=== PATIENT | male | born 1950 | race Caucasian/White ===

== ENCOUNTER 2021-08-31 19:34 | Inpatient (IN) | payer MEDICARE, OTHER ==
[~2021-08-31] VITALS: Ht 170.2 cm; Wt 79.4 kg
--- NOTE | 2021-08-31 19:50 | NUR ---
[id number] FROM SNF, C/O "BEING MORE LETHARGIC" PER STAFF. 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 PATIENT ALERT AND ORIENTED X1. PATIENT BROUGHT IN BY STRETCHER AND PLACED IN BED 02 ON NC 4L.
[2021-08-31] MEDS ORDERED: PIPERACILLIN /TAZOBACTAM 3.375 G in IV D5W 50 ML IV ONE (20:00)
[2021-08-31] MEDS ORDERED: IV NS 0.9% 1,000 ML BAG IV ONE (20:00)
[2021-08-31] MEDS ORDERED: VANCOMYCIN 1 GM in IV D5W 250 ML IV ONE (20:00)
[2021-08-31] MEDS ORDERED: LIDOCAINE 2% JEL UROJET 10 ML MM ONE (20:27)
[2021-08-31] MEDS ORDERED: PIPERACILLIN /TAZOBACTAM 3.375 G VIAL IV ONE (21:04)
[2021-08-31] MEDS ORDERED: ACETAMINOPHEN ES 500 MG TABLET PO ONE (22:00)
[2021-08-31 22:01] LABS: BILIRUBIN,URINE NEGATIVE (NEGATIVE); COLOR,URINE YELLOW (YELLOW); LEUKOCYTE ESTERASE ,URINE NEGATIVE (NEGATIVE); NITRITE, URINE NEGATIVE (NEGATIVE); PROTEIN,URINE NEGATIVE (NEGATIVE); UGLUCOSE NEGATIVE (NEGATIVE)
[2021-08-31 22:09] LABS: BACTERIA,URINE RARE /HPF (None Seen); MUCUS,URINE Few /LPF (None Seen); SQUAMOUS EPITHELIAL CELL,UR 0-2 /HPF (None Seen); WBC,URINE 0-2 /HPF (0-3)
[2021-08-31] MEDS ORDERED: OLANZAPINE 10 MG VIAL IM ONE ×2 (23:11→23:30)
[2021-08-31] MEDS ORDERED: ACETAMINOPHEN ES 500 MG TABLET ONE (23:14)
[2021-08-31 23:19] LABS: BASOPHILS % (AUTO) 0.2 % (0.0-2.0); EOSINOPHILS % (AUTO) 0.6 % (0.0-6.0); HEMATOCRIT 39 % (39-51); HEMOGLOBIN 12.9 g/dL (13.5-17.5); LYMPHOCYTES # (AUTO) 1.3 K/uL (0.8-4.8); LYMPHOCYTES % (AUTO) 15.9 % (20.0-44.0); MEAN CORPUSCULAR HGB CONC 33 g/dl (31.0-36.0); MEAN CORPUSCULAR VOLUME 94 fL (80-96); MONOCYTES % (AUTO) 12.4 % (2.0-12.0); NEUTROPHILS # (AUTO) 5.8 K/uL (1.8-8.9); NEUTROPHILS % (AUTO) 70.9 % (43.0-81.0); PLATELET COUNT (AUTO) 108 K/uL (150-450); RED BLOOD CELL COUNT(AUTO) 4.14 MIL/uL (4.5-6.0); WHITE BLOOD COUNT (AUTO) 8.2 K/uL (4.3-11.0)
[2021-08-31] MEDS ORDERED: VANCOMYCIN 1 GM VIAL ONE (23:36)
[2021-08-31 23:40] LABS: CALCIUM, SERUM 8.3 mg/dL (8.5-10.1); CARBON DIOXIDE 30 mmol/L (21-32); CHLORIDE 106 mmol/L (98-107); CREATININE 0.6 mg/dL (0.6-1.3); GLUCOSE 126 mg/dL (74-106); SODIUM SERUM 142 mmol/L (136-145); UREA NITROGEN, BLOOD 12 mg/dL (7-18)
[2021-08-31 23:53] LABS: ALANINE AMINOTRANSFERASE 18 U/L (12-78); ALBUMIN 2.4 g/dL (3.4-5.0); ALKALINE PHOSPHATASE 67 U/L (46-116); ASPARTATE AMINOTRANSFERASE 16 U/L (15-37); BILIRUBIN,DIRECT 0.1 mg/dL (0.0-0.2); BILIRUBIN,TOTAL 0.2 mg/dL (0.2-1.0)
[2021-09-01] VITALS (7 sets, daily range): BP systolic 123–159; BP diastolic 63–80
--- NOTE | 2021-09-01 00:58 | NUR ---
CALLED [facility], EQUIPMENT W[facility]ER DR DESAI
[2021-09-01] MEDS ORDERED: Z GUARD REMEDY 2 OZ OINT TP PRN (01:30)
[2021-09-01] MEDS ORDERED: MAGNESIUM HYDROXIDE 30 ML UDC PO PRN (01:30)
[2021-09-01] MEDS ORDERED: MAG HYDROX/AL HYDROX/SIMETH 30 ML UDC PO PRN (01:30)
[2021-09-01] MEDS ORDERED: ACETAMINOPHEN 325 MG TABLET PO PRN (01:30)
[2021-09-01] MEDS ORDERED: ZOLPIDEM TARTRATE 5 MG TABLET PO PRN (01:30)
[2021-09-01] MEDS ORDERED: ONDANSETRON HCL/PF 4 MG/2 ML VIAL IVP PRN (01:30)
--- NOTE | 2021-09-01 02:50 | NUR ---
CALLED FOR REPORT RN WILL Call BACK
--- NOTE | 2021-09-01 03:02 | NUR ---
RN NOTES RECEIVED ER ADMISSION REPORT FROM [facility]IR[facility] MORAN. ALL PERTINENT ADMISSION INFO REGARDING PT NOTED. WILL WAIT FOR PT TO BE TRANSFERRED TO UNIT AND ADDRESS NEEDS ACCORDINGLY. ACADEMIC SERVICES COORDINATOR MADE AWARE.
--- NOTE | 2021-09-01 03:06 | NUR ---
REPORT GIVEN [facility]
--- NOTE | 2021-09-01 03:15 | NUR ---
RN NOTES RECEIVED PT FROM ER VIA BHANU ACCOMPANIED BY 2 ER STAFF AND TRANSFERRED TO BED VIA 2 PERSON ASSIST. PT IS A/OX1-2; ON 4L OF 02 VIA NC; WITH RESPIRATIONS EVEN AND UNLABORED. COMPREHENSIVE PHYSICAL ASSESSMENT AND PATIENT CARE DONE. CALL LIGHT WITHIN REACH, SAFETY MEASURES AND ISOLATION PRECAUTION IN PLACE, WILL CONTINUE MONITOR AND ASSESS THROUGHOUT THE SHIFT. WILL CARRY OUT MD ORDERS ACCORDINGLY. MILLING MACHINE TENDER MADE AWARE.
[2021-09-01] MEDS ORDERED: TERA2CAP4 PO (03:17)
[2021-09-01] MEDS ORDERED: TRAZ-182 PO (03:17)
[2021-09-01] MEDS ORDERED: BENA20TA9 PO (03:17)
[2021-09-01] MEDS ORDERED: OLAN5TAB3 PO (03:17)
[2021-09-01] MEDS ORDERED: SENN-261 PO (03:17)
[2021-09-01] MEDS ORDERED: ACET325C7 PO (03:17)
[2021-09-01] MEDS ORDERED: ASCO60LO9 PO (03:17)
[2021-09-01] MEDS ORDERED: AMLO-212 PO (03:17)
[2021-09-01] MEDS ORDERED: MULT-754 PO (03:17)
[2021-09-01] MEDS ORDERED: ATOR10TA PO (03:17)
[2021-09-01] MEDS ORDERED: ZINC1POW MC (03:17)
--- NOTE | 2021-09-01 03:26 | NUR ---
PT TRANSPORTED TO ROOM 110 ON COLD STRIP ROLLER PER ACLS PROTOCOL WITHOUT ICNIDENT.
[2021-09-01] MEDS ORDERED: AMLODIPINE BESYLATE 5 MG TABLET PO SCH (03:30)
[2021-09-01] MEDS: IV NS 0.9% 1,000 ML IV PRN ×2 (03:30→20:43)
[2021-09-01] MEDS ORDERED: BENAZEPRIL HCL 20 MG TABLET PO SCH (03:30)
[2021-09-01] MEDS ORDERED: PIPERACILLIN /TAZOBACTAM 3.375 G VIAL IV ONE (04:19)
[2021-09-01] MEDS ORDERED: PIPERACILLIN /TAZOBACTAM 3.375 G in IV D5W 50 ML IV SCH ×2 (05:00→12:00)
--- NOTE | 2021-09-01 06:44 | NUR ---
RN CLOSING NOTE: PATIENT REMAINS IN ROOM IN NO SIGNS OF RESPIRATORY DISTRESS, PATIENT STILL ON 4L OF 02 VIA NC ;TOLERATING WELL SATURATING @ >95% SP02. SAFETY MEASURES IMPLEMENTED, BED IN LOWEST POSITION, LOCKED, SIDE RAILS UP, CALL LIGHT WITHIN REACH. ALL NEEDS AND ORDERS ADDRESSED DURING THE SHIFT. IV ACCESS MAINTAINED INTACT, SECURED AND FLUSHING WELL. ALL DUE MEDS GIVEN ORDERED & SCHEDULED ; PATIENT TOLERATED WELL. PATIENT KEPT CLEAN AND COMFORTABLE WITHIN THE SHIFT. PATIENT ENDORSED TO INCOMING SHIFT RN WITH STABLE VITAL SIGN AND FOR CONTINUITY OF CARE.
--- NOTE | 2021-09-01 07:38 | NUR ---
RN NOTE PT RECEIVED AWAKE RESTING IN BED, ALERT AND VERBALLY RESPONSIVE. NOT IN DISTRESS. ON O2 @4L VIA NC, TOLERATING WELL. NO COMPLAINTS OF PAIN AND DISCOMFORT. SANGITA MIDLINE IN PLACE AND PATENT, RUNNING ON NS @ 90CC/HR. SAFETY MEASURES FOLLOWED. WILL CONTINUE TO MONITOR.
[2021-09-01] MEDS: OLANZAPINE 5 MG TABLET PO SCH ×3 (09:00→17:00)
[2021-09-01] MEDS: PRAZOSIN HCL 1 MG CAPSULE PO SCH (09:00)
[2021-09-01] MEDS: PIPERACILLIN /TAZOBACTAM 3.375 G in IV D5W 100 ML IV SCH ×2 (09:51→17:33)
[2021-09-01] MEDS: VANCOMYCIN 1 GM in IV D5W 250 ML IV SCH ×2 (13:40→23:01)
[2021-09-01] MEDS ORDERED: hydrALAZINE HCL IV 20 MG VIAL IV PRN (16:00)
--- NOTE | 2021-09-01 19:30 | NUR ---
RN OPENING NOTES RECEIVED PATIENT ON BED, AWAKE, ALERT AND VERBALLY RESPONSIVE, RESPIRATORY EVEN AND UNLABORED, ON NC @4LPM, NO SOB NOTED, DENIES PAIN, NO S/S OF DISTRESS NOTED, REMAIN AFEBRILE. SR ON PRESS HELPER, HR-86. RESIDENT NOTED WITH LT. UPPER ARM G#18 MIDLINE PATENT, INTACT AND FLUSHED WITH NS, NO INFILTRATION NOTED IN SITE. RUNNING ON NS @ 90CC/HR TOLERATED WELL. BED IN LOWEST POSITION, LOCKED, BED ALARM ARMED. ALL NEEDS ATTENDED. CALL LIGHT WITH IN REACH.
[2021-09-01] MEDS: ATORVASTATIN 10 MG TABLET PO SCH (23:00)
[2021-09-01] MEDS: TRAZODONE 50 MG TABLET PO SCH (23:00)
[2021-09-01] MEDS: SENNOSIDES 8.6 MG TABLET PO SCH (23:00)
[2021-09-02] VITALS (7 sets, daily range): BP systolic 104–151; BP diastolic 67–91
[2021-09-02] MEDS: PIPERACILLIN /TAZOBACTAM 3.375 G in IV D5W 100 ML IV SCH ×3 (02:26→17:14)
[2021-09-02] MEDS: IV NS 0.9% 1,000 ML IV PRN (06:41)
[2021-09-02 06:46] LABS: BASOPHILS % (AUTO) 0.3 % (0.0-2.0); EOSINOPHILS % (AUTO) 2.4 % (0.0-6.0); HEMATOCRIT 38 % (39-51); HEMOGLOBIN 12.9 g/dL (13.5-17.5); LYMPHOCYTES # (AUTO) 1.4 K/uL (0.8-4.8); LYMPHOCYTES % (AUTO) 20.9 % (20.0-44.0); MEAN CORPUSCULAR HGB CONC 34 g/dl (31.0-36.0); MEAN CORPUSCULAR VOLUME 93 fL (80-96); MONOCYTES # (AUTO) 0.9 K/uL (0.1-1.30); NEUTROPHILS # (AUTO) 4.2 K/uL (1.8-8.9); NEUTROPHILS % (AUTO) 62.4 % (43.0-81.0); PLATELET COUNT (AUTO) 99 K/uL (150-450); RED BLOOD CELL COUNT(AUTO) 4.06 MIL/uL (4.5-6.0); WHITE BLOOD COUNT (AUTO) 6.7 K/uL (4.3-11.0)
--- NOTE | 2021-09-02 07:17 | NUR ---
RN OPENING NOTES PATIENT SLEEPING ON BED, RESPIRATORY EVEN AND UNLABORED, ON NC @4LPM, NO SOB NOTED, DENIES PAIN, NO S/S OF DISTRESS NOTED, REMAIN AFEBRILE. SR ON THREAD GRINDER, HR-83. RESIDENT NOTED WITH LT. UPPER ARM G#18 MIDLINE PATENT, INTACT AND FLUSHED WITH NS, NO INFILTRATION NOTED IN SITE. PT. REMAIN NPO EXCEPT MEDS. RUNNING ON NS @ 90CC/HR TOLERATED WELL. BED IN LOWEST POSITION, LOCKED, BED ALARM ARMED. ALL NEEDS ATTENDED. CALL LIGHT WITH IN REACH.
[2021-09-02 07:18] LABS: CALCIUM, SERUM 8.4 mg/dL (8.5-10.1); CREATININE 0.6 mg/dL (0.6-1.3); MAGNESIUM 1.8 mg/dL (1.8-2.4); PHOSPHORUS 3.3 mg/dL (2.5-4.9); POTASSIUM 3.9 mmol/L (3.5-5.1)
--- NOTE | 2021-09-02 07:39 | NUR ---
RN OPENING NOTES RECEIVED PATIENT ON BED, AWAKE, ALERT AND VERBALLY RESPONSIVE, RESPIRATORY EVEN AND UNLABORED, ON NC @4LPM, NO SOB NOTED, DENIES PAIN, NO S/S OF DISTRESS NOTED, REMAIN AFEBRILE THROUGH OUT THE NIGHT. RESIDENT NOTED WITH LT. UPPER ARM G#18 MIDLINE AND LEFT HAND 22g PATENT, INTACT AND FLUSHED WITH NS. RUNNING ON NS @ 90CC/HR . SAFETY PROTOCOL IN PLACE BED IN LOWEST POSITION, LOCKED, BED ALARM ARMED. CALL LIGHT WITH IN REACH.
[2021-09-02] MEDS: OLANZAPINE 5 MG TABLET PO SCH ×3 (08:03→16:22)
[2021-09-02] MEDS: PRAZOSIN HCL 1 MG CAPSULE PO SCH (08:03)
--- NOTE | 2021-09-02 10:42 | NUR ---
MANAGER ONCOLOGY NOTE ROUNDS MADE PATIENT HAS REDNESS NOTED ON THE BUTTOCKS, SACRAL AREA, RIGHT HEEL WITH SCAB. PATIENT REPOSITIONED, WOUND CONSULT ORDERED DR LEMON NOTIFIED.
--- NOTE | 2021-09-02 10:57 | NUR ---
RN NOTE ROUND DONE, PATIENT IS A/O X 2 RESTING IN BED WITH NC RUNNING AT 2 L/ NO SOB OR PAIN EXPRESSED AT THIS TIME. SKIN CARE PERFORMED. SAFETY PROTOCOL IN PLACE, BED IN LOWEST POSITION, BED ALARM ACTIVATED, SIDE RAILS UP X 2 AND CALL LIGHT WITHIN REACH.
[2021-09-02] MEDS ORDERED: POVI3780 TP (11:09)
[2021-09-02] MEDS ORDERED: ZINC1CAP3 PO (11:09)
[2021-09-02] MEDS ORDERED: LEVE500T20 PO (11:09)
[2021-09-02] MEDS ORDERED: AMIN30LI2 PO (11:09)
[2021-09-02] MEDS ORDERED: MAGN400O6 PO (11:09)
[2021-09-02] MEDS ORDERED: BISA10SU11 RC (11:09)
[2021-09-02] MEDS ORDERED: BENZ1TAB7 PO (11:09)
[2021-09-02] MEDS ORDERED: RISP0.2515 PO (11:09)
[2021-09-02] MEDS ORDERED: APIX2.5T PO (11:09)
[2021-09-02] MEDS ORDERED: MULT-447 PO (11:09)
[2021-09-02] MEDS ORDERED: DIVA500T2 PO (11:09)
[2021-09-02] MEDS ORDERED: ASCO-352 PO (11:09)
[2021-09-02] MEDS ORDERED: NA P133E RC (11:09)
[2021-09-02] MEDS ORDERED: ACET-2605 PO (11:09)
--- NOTE | 2021-09-02 12:05 | NUR ---
LEAD SIMULATION MODELING ENGINEER NOTES PER DR. ION DELGADO TO HAVE SWALLOW EVAL BY SPEECH THERAPIST, IF PASS SWALLOW EVAL DC IV FLUIDS. PROVIDER NOTIFIED OF BILATERAL ARM AND FEET SWELLING.
[2021-09-02] MEDS: VANCOMYCIN 1 GM in IV D5W 250 ML IV SCH (13:05)
--- NOTE | 2021-09-02 14:10 | NUR ---
RN NOTE ROUND DONE, PATIENT IS A/O X 2 RESTING IN BED WITH NC RUNNING AT 2 L/ NO SOB OR PAIN EXPRESSED AT THIS TIME. SAFETY PROTOCOL IN PLACE, BED IN LOWEST POSITION, BED ALARM ACTIVATED, SIDE RAILS UP X 2 AND CALL LIGHT WITHIN REACH.
--- NOTE | 2021-09-02 18:18 | NUR ---
RN CLOSING NOTE PATIENT REMAINS IN ROOM IN NO SIGNS OF RESPIRATORY DISTRESS OR PAIN, PATIENT STILL ON 4L OF 02 VIA NC; TOLERATING WELL SATURATING @ >95% SP02. MAINTAINED PATIENTS NPO SATUS EXCEPT FOR MEDS. SAFETY MEASURES IMPLEMENTED, BED IN LOWEST POSITION, LOCKED, SIDE RAILS UP, CALL LIGHT WITHIN REACH. ALL NEEDS AND ORDERS ADDRESSED DURING THE SHIFT. IV ACCESS MAINTAINED INTACT, SECURED AND FLUSHING WELL. ALL DUE MEDS GIVEN ORDERED & SCHEDULED; PATIENT TOLERATED WELL. PATIENT KEPT CLEAN AND COMFORTABLE WITHIN THE SHIFT. WILL ENDORSE TO NIGHT NURSE FOR CHRISTOFER
--- NOTE | 2021-09-02 19:30 | NUR ---
RN OPENING NOTE RECEIVED PATIENT ON BED, AWAKE, ALERT AND VERBALLY RESPONSIVE, RESPIRATORY EVEN AND UNLABORED, ON NC @4LPM, NO SOB NOTED, DENIES PAIN, NO S/S OF DISTRESS NOTED, REMAIN AFEBRILE. SR ON COMMUNICATIONS SENIOR ASSOCIATE, HR-83. RESIDENT NOTED WITH LT. UPPER ARM G#18 MIDLINE PATENT, INTACT AND FLUSHED WITH NS, NO INFILTRATION NOTED IN SITE. RUNNING ON NS @ 90CC/HR TOLERATED WELL. STILL ON NPO, FOR SWALLOW EVAL, IF PASSED. JANUARY D/C FLUIDS. BED IN LOWEST POSITION, LOCKED, BED ALARM ARMED. ALL NEEDS ATTENDED. CALL LIGHT WITH IN REACH
[2021-09-02] MEDS: ATORVASTATIN 10 MG TABLET PO SCH (22:30)
[2021-09-02] MEDS: TRAZODONE 50 MG TABLET PO SCH (22:30)
[2021-09-02] MEDS: SENNOSIDES 8.6 MG TABLET PO SCH (22:30)
[2021-09-03] VITALS: BP 151/90
[2021-09-03] MEDS: VANCOMYCIN 1 GM in IV D5W 250 ML IV SCH ×2 (00:58→12:56)
[2021-09-03] MEDS: PIPERACILLIN /TAZOBACTAM 3.375 G in IV D5W 100 ML IV SCH ×3 (02:50→17:03)
[2021-09-03 04:00] VITALS: BP 134/78
[2021-09-03] MEDS: IV NS 0.9% 1,000 ML IV PRN (04:41)
--- NOTE | 2021-09-03 06:47 | NUR ---
RN CLOSING NOTES PATIENT AWAKE, RESTING ON BED, RESPIRATORY EVEN AND UNLABORED, ON NC @4LPM, NO SOB NOTED, DENIES PAIN, NO S/S OF DISTRESS NOTED, REMAIN AFEBRILE. SR ON CHILD DEVELOPMENT ASSOCIATE TEACHER, HR-83. RESIDENT NOTED WITH LT. UPPER ARM G#18 MIDLINE PATENT, INTACT AND FLUSHED WITH NS, NO INFILTRATION NOTED IN SITE. PT. REMAIN NPO EXCEPT MEDS. RUNNING ON NS @ 90CC/HR TOLERATED WELL. BED IN LOWEST POSITION, LOCKED, BED ALARM ARMED. ALL NEEDS ATTENDED. CALL LIGHT WITH IN REACH. ENDORSED TO NEXT SHIFT
--- NOTE | 2021-09-03 07:48 | NUR ---
RN OPENING NOTE PATIENT RECEIVED IN BED, RESTING. PATIENT ON 4L O2 NC WITH NO SIGNS OF LABORED BREATHING AT THIS TIME. LEFT UA MIDLINE AND LEFT HAND 22G IN PLACE AND RUNNING NS AT 90 CC/HR. BED LOCKED AND IN LOWEST POSITION, NO SIGNS OF DISTRESS NOTED AT THIS TIME, CALL LIGHT WITHIN REACH, 3 SIDE RAILS UP. WILL CONTINUE TO MONITOR.
[2021-09-03 08:00] VITALS: BP 141/73
--- NOTE | 2021-09-03 08:25 | NUR ---
WOUND CARE CONSULT: REVIEWED CHART, NURSING DOCUMENTATION AND PHOTOS WHICH INDICATE REDNESS TO BUTTOCKS AND RT HEEL WOUND, PRESENT ON ADMISSION. DPM CONSULT CALLED TO DR AARON. RECOMMENDATIONS MADE FOR SKIN PROTECTION. DISCUSSED WITH NURSING STAFF. MD IN AGREEMENT WITH PLAN OF CARE.
[2021-09-03] MEDS: OLANZAPINE 5 MG TABLET PO SCH ×3 (09:12→17:03)
[2021-09-03] MEDS: PRAZOSIN HCL 1 MG CAPSULE PO SCH (09:13)
[2021-09-03 11:26] LABS: BASOPHILS % (AUTO) 0.4 % (0.0-2.0); EOSINOPHILS % (AUTO) 3.2 % (0.0-6.0); HEMATOCRIT 35 % (39-51); HEMOGLOBIN 11.8 g/dL (13.5-17.5); LYMPHOCYTES # (AUTO) 1.6 K/uL (0.8-4.8); LYMPHOCYTES % (AUTO) 26.9 % (20.0-44.0); MEAN CORPUSCULAR HGB CONC 34 g/dl (31.0-36.0); MEAN CORPUSCULAR VOLUME 95 fL (80-96); MONOCYTES % (AUTO) 17.5 % (2.0-12.0); NEUTROPHILS # (AUTO) 3.1 K/uL (1.8-8.9); PLATELET COUNT (AUTO) 112 K/uL (150-450); RED BLOOD CELL COUNT(AUTO) 3.74 MIL/uL (4.5-6.0); WHITE BLOOD COUNT (AUTO) 5.9 K/uL (4.3-11.0)
[2021-09-03 11:58] LABS: ALBUMIN 2.1 g/dL (3.4-5.0); BILIRUBIN,TOTAL 0.3 mg/dL (0.2-1.0); CALCIUM, SERUM 8.4 mg/dL (8.5-10.1); CREATININE 0.7 mg/dL (0.6-1.3); MAGNESIUM 1.8 mg/dL (1.8-2.4); PHOSPHORUS 3.1 mg/dL (2.5-4.9); POTASSIUM 3.7 mmol/L (3.5-5.1); TOTAL PROTEIN, SERUM 5.4 g/dL (6.4-8.2)
[2021-09-03 12:00] VITALS: BP 115/73
[2021-09-03 14:08] LABS: NEUTROPHILS % (MANUAL) 49 (42-76)
[2021-09-03 14:09] LABS: EOSINOPHILS % (MANUAL) 6 % (0-4); LYMPHOCYTES % (MANUAL) 25 % (16-48); MONOCYTES % (MANUAL) 20 % (0-11.0)
[2021-09-03 16:00] VITALS: BP 117/72
--- NOTE | 2021-09-03 18:50 | NUR ---
RN CLOSING NOTE PATIENT REMAINS IN BED, RESTING. PATIENT ON 4L O2 NC WITH NO SIGNS OF LABORED BREATHING AT THIS TIME. LEFT UA MIDLINE IN PLACE. BED LOCKED AND IN LOWEST POSITION, NO SIGNS OF DISTRESS NOTED AT THIS TIME, CALL LIGHT WITHIN REACH, 3 SIDE RAILS UP. ALL NEEDS ATTENDED DURING SHIFT. EMT PRESENT IN THE ROOM PREPARING FOR DISCHARGE.
== END 2021-09-03 19:00 | DRG 205 ==
LOC: ER 19:41 → TELE1 09-01 01:38
PROC: 05H633Z Insertion of Infusion Device into Left Subclavian Vein, Percutaneous Approach (ICD-10-PCS; principal; 2021-08-31)
PROC: B547ZZA Ultrasonography of Left Subclavian Vein, Guidance (ICD-10-PCS; 2021-08-31)
DX: T17.928A Food in respiratory tract, part unspecified causing other injury, initial encounter (principal); G92.8 Other toxic encephalopathy; E44.0 Moderate protein-calorie malnutrition; G40.909 Epilepsy, unspecified, not intractable, without status epilepticus; F03.90 Unspecified dementia, unspecified severity, without behavioral disturbance, psychotic disturbance, mood disturbance, and anxiety; J44.9 Chronic obstructive pulmonary disease, unspecified; E78.5 Hyperlipidemia, unspecified; D69.6 Thrombocytopenia, unspecified; F09 Unspecified mental disorder due to known physiological condition; I10 Essential (primary) hypertension; Z20.822 Contact with and (suspected) exposure to COVID-19; E88.09 Other disorders of plasma-protein metabolism, not elsewhere classified; Z68.27 Body mass index [BMI] 27.0-27.9, adult; L89.616 Pressure-induced deep tissue damage of right heel; N40.0 Benign prostatic hyperplasia without lower urinary tract symptoms; X58.XXXA Exposure to other specified factors, initial encounter; Y93.9 Activity, unspecified; Y92.129 Unspecified place in nursing home as the place of occurrence of the external cause
CPT/HCPCS: 36415; 71045-TC; 80048-TC; 80053-TC; 80076-TC; 80202-TC; 81001; 83605-TC; 83735-TC; 83880; 84100-TC; 84484-TC; 85025-TC; 85730-TC; 87040-TC; 87081-TC; 87086-TC; 92526; 92611-TC; C9803; G0378; J2543; J3370; J3490; J7030; J7050; J7060; U0003